=== PATIENT | female | born 1995 | race African-American/Black ===

== ENCOUNTER 2019-01-03 19:10 | Emergency (ER) | payer OTHER ==
[2019-01-03] MEDS ORDERED: guaiFENesin/CODIENE 100mg/10mg 5 ML UDC PO ONE (19:38)
[2019-01-03] MEDS ORDERED: Al Hydrox/Mg Hydrox/Simet LIQ* 30 ML UDC PO ONE (19:39)
[2019-01-03] MEDS ORDERED: Lidocaine 2% VISCOUS* 15 ML UDC PO ONE (19:39)
[2019-01-03 20:00] LABS: Rapid Strep Molecular Negative (Negative)
--- NOTE | 2019-01-03 20:04 | ED ---
Throat Pain/Nasal Congestion - HPI Summary HPI Summary: 23-year-old female presents with sore throat for the past 2 days. She states is also been having a dry cough. States she feels like she is having difficulty breathing due to the cough with some chest tightness with the cough. She admits to some sinus congestion. No fevers. No abdominal pain. No nausea vomiting. Hasn't tried anything for her symptoms. She is nonsmoker. No history asthma or COPD. - History of Current Complaint Chief Complaint: EDUpperRespComplaint Time Seen by Provider: 01/03/19 19:30 - Allergies/Home Medications Allergies/Adverse Reactions: Allergies Allergy/AdvReac Type Severity Reaction Status Date / Time MS Shellfish Allergy Allergy Airway Verified 01/03/19 19:18 [Shellfish Allergy] Obstruction Bee stings Allergy Airway Uncoded 09/28/14 05:10 Obstruction Peanuts Allergy Airway Uncoded 09/28/14 05:10 Obstruction PMH/Surg Hx/FS Hx/Imm Hx Endocrine/Hematology History: Denies: Hx Anticoagulant Therapy, Hx Diabetes, Hx Thyroid Disease Cardiovascular History: Denies: Hx Hypertension Respiratory History: Reports: Hx Asthma Denies: Hx Chronic Obstructive Pulmonary Disease (COPD) GI History: Denies: Hx Ulcer Psychiatric History: Denies: Hx Eating Disorder - Immunization History Date of Tetanus Vaccine: PT STATES UNSURE Date of Influenza Vaccine: NONE Infectious Disease History: No Infectious Disease History: Denies: Hx Clostridium Difficile, Hx Hepatitis, Hx Human Immunodeficiency Virus (HIV), Hx of Known/Suspected MRSA, Hx Shingles, Hx Tuberculosis, Hx Known/ Suspected VRE, Hx Known/Suspected VRSA, History Other Infectious Disease, Traveled Outside the [place] in Last 30 Days - Family History Known Family History: Positive: Hypertension, Diabetes - Social History Alcohol Use: None Substance Use Type: Reports: None Smoking Status (MU): Never Smoked Tobacco Have You Smoked in the Last Year: No Review of Systems Negative: Fever Positive: Sore Throat, Nasal Discharge Positive: Chest Pain - tightness with cough Positive: Shortness Of Breath - with cough, Cough Negative: Abdominal Pain All Other Systems Reviewed And Are Negative: Yes Physical Exam Triage Information Reviewed: Yes Vital Signs On Initial Exam: Initial Vitals Temp Pulse Resp BP Pulse Ox 99.0 F 108 20 144/92 100 01/03/19 19:14 01/03/19 19:14 01/03/19 19:14 01/03/19 19:14 01/03/19 19:14 Vital Signs Reviewed: Yes Appearance: Positive: Well-Appearing Skin: Positive: Warm, Dry Head/Face: Positive: Normal Head/Face Inspection Eyes: Positive: Normal, EOMI, ADRIAN, Conjunctiva Clear ENT: Positive: Normal ENT inspection, Pharyngeal erythema, TMs normal, Uvula midline, Other - soft palate symmetric. Negative: Tonsillar swelling, Tonsillar exudate, Trismus, Muffled voice Neck: Positive: Supple, Nontender, No Lymphadenopathy Respiratory/Lung Sounds: Positive: Clear to Auscultation, Breath Sounds Present Cardiovascular: Positive: Normal, RRR Abdomen Description: Positive: Nontender, Soft Bowel Sounds: Positive: Present Musculoskeletal: Positive: Normal Neurological: Positive: Normal Psychiatric: Positive: Normal Procedures - Sedation Patient Received Moderate/Deep Sedation with Procedure: No Diagnostics - Vital Signs Vital Signs Temp Pulse Resp BP Pulse Ox 01/03/19 19:14 99.0 F 108 20 144/92 100 - Laboratory Lab Statement: Any lab studies that have been ordered have been reviewed, and results considered in the medical decision making process. - Radiology chest Radiology Interpretation Completed By: ED Physician Summary of Radiographic Findings: no pneumonia EENT Course/Dx - Course Course Of Treatment: 23-year-old female presents with sore throat for the past 2 days. She states is also been having a dry cough. States she feels like she is having difficulty breathing due to the cough with some chest tightness with the cough. She admits to some sinus congestion. No fevers. No abdominal pain. No nausea vomiting. Hasn't tried anything for her symptoms. She is nonsmoker. No history asthma or COPD. on exam lungs CTA. Pharynx erythematous but uvula midline soft palate symmetric. Chest x-ray normal. Strep negative. will treat supportively with Tessalon and magic mouth wash. Patient understands agrees with plan. - Differential Diagnoses Differential Diagnoses: Pharyngitis, Tonsilitis, URI/Bronchitis - Diagnoses Provider Diagnoses: Upper respiratory infection Discharge ED - Sign-Out/Discharge Documenting (check all that apply): Patient Departure - Discharge Plan Condition: Good Disposition: HOME Prescriptions: Benzonatate CAP* [Tessalon 100 MG CAP*] 100 mg PO TID #21 cap Magic Mouth Was-JANI/MAAL/LIDO* 5 ml SWISH SPIT QID #100 ml Patient Education Materials: Upper Respiratory Infection (ED) Referrals: Kris Aguayo MD [Primary Care Provider] - Additional Instructions: Use Tessalon three times a day for cough Magic mouthwash 5ml swish and spit can use 4x a day Can use cough drops or products such as cloraseptic spray Take Tylenol and ibuprofen for pain/fever every 6 hours follow up with primary Return to ED if develop any new or worsening symptoms - Billing Disposition and Condition Condition: GOOD Disposition: Home
[2019-01-03 20:25] VITALS: BP 98/71
== END 2019-01-03 20:15 | disposition home or self-care (01) ==
LOC: ED 19:10 → MERGE 19:10 → ED 20:15
DX: J06.9 Acute upper respiratory infection, unspecified (principal)
CPT/HCPCS: 71046; 87651; 99282; A9270-GY